=== PATIENT | female | born 1995 | race Caucasian/White ===

== ENCOUNTER 2018-06-16 09:40 | Emergency (ER) | payer MEDICAID, OTHER ==
--- NOTE | 2018-06-16 10:04 | ER Document Report ---
ED General - General Chief Complaint: Vaginal Bleeding Stated Complaint: VAGINAL BLEEDING Time Seen by Provider: 06/16/18 10:02 TRAVEL OUTSIDE OF THE [place] IN LAST 30 DAYS: No - HPI Notes: Patient is a 23-year-old female that presents to the emergency department for chief complaint of vaginal bleeding. Patient at 6 weeks 1 day gestation by ultrasound performed at the health department. She reports some lower abdominal cramping yesterday and vaginal bleeding that began today. She states it is bright red with small darker clots. She states it has been a minimal amount of blood and she would have not soaked through a pad. She currently denies any abdominal pain, fever, nausea, vomiting and dysuria. She is currently using vaporized tobacco and is weaning her way off as quickly as she can tolerate. She denies any abdominal trauma. Past Medical History: Negative Past Surgical History: [address] teeth removal Social History: Vaporized tobacco. Denies drugs and alcohol Family History: Reviewed and noncontributory for presenting illness Allergies: Reviewed, see documented allergy list. REVIEW OF SYSTEMS: CONSTITUTIONAL : No fever No chills No diaphoresis No recent illness EENT: No vision changes No congestion No sore throat CARDIOVASCULAR: No chest pain No palpitations RESPIRATORY: No shortness of breath No cough No difficulty breathing GASTROINTESTINAL: No abdominal pain No nausea No vomiting No diarrhea GENITOURINARY: Vaginal bleeding No dysuria No hematuria No difficulty urinating MUSCULOSKELETAL: No back pain No leg pain No arm pain SKIN: No rashes No lesions LYMPHATIC: No swollen, enlarged glands. NEUROLOGICAL: No lightheadedness No headache No weakness No paresthesias PSYCHIATRIC: No anxiety No depression PHYSICAL EXAMINATION: Vital signs reviewed, nursing noted reviewed. GENERAL: Well-appearing, well-nourished and in no acute distress. HEAD: Atraumatic, normocephalic. EYES: Eyes appear normal, extraocular movements intact, sclera anicteric, conjunctiva are normal. ENT: nares patent, oropharynx clear without exudates. Moist mucous membranes. NECK: Normal range of motion, supple without lymphadenopathy LUNGS: Breath sounds clear to auscultation bilaterally and equal. No wheezes rales or rhonchi. HEART: Regular rate and rhythm without murmurs ABDOMEN: Soft, nontender, normoactive bowel sounds. No rebound, guarding, or rigidity. No masses appreciated. EXTREMITIES: Nontender, good range of motion, no pitting or edema. NEUROLOGICAL: No focal neurological deficits. Moves all extremities spontaneously Motor and sensory grossly intact on exam. PSYCH: Normal mood, normal affect. SKIN: Warm, Dry, normal turgor, no rashes or lesions noted on exposed skin - Related Data Allergies/Adverse Reactions: No Known Allergies Allergy (Verified 06/16/18 09:45) Past Medical History - Social History Smoking Status: Current Every Day Smoker Chew tobacco use (# tins/day): No Frequency of alcohol use: None Drug Abuse: None Family History: Reviewed & Not Pertinent Patient has suicidal ideation: No Patient has homicidal ideation: No Renal/ Medical History: Denies: Hx Peritoneal Dialysis Physical Exam - Vital signs Vitals: Temp Pulse Resp BP Pulse Ox 98.1 F 92 15 122/70 100 06/16/18 09:43 06/16/18 09:43 06/16/18 09:43 06/16/18 09:43 06/16/18 09:43 Course - Re-evaluation Re-evalutation: 06/16/18 10:03 Vitals reviewed. Nursing notes reviewed. Patient is afebrile and nontoxic in appearance. Abdominal exam is soft and nontender. 06/16/18 11:38 Patient's ultrasound showed no cardiac activity however she is early in her gestation and the recommendation is for close repeat ultrasound in the next 5-7 days. Patient is Rh+ and not requiring RhoGam. Urinalysis negative for infection. She has a stable hemoglobin. She will be discharged home for further outpatient OB management. [facility] but also told she can follow with the health department. Laboratory 06/16/18 06/16/18 06/16/18 10:00 10:00 10:00 WBC 10.5 RBC 4.98 Hgb 15.3 Hct 44.5 MCV 89 MCH 30.8 MCHC 34.4 RDW 13.5 Plt Count 295 Seg Neutrophils % 62.0 Lymphocytes % 29.3 Monocytes % 4.8 Eosinophils % 3.5 Basophils % 0.4 Absolute Neutrophils 6.5 Absolute Lymphocytes 3.1 Absolute Monocytes 0.5 Absolute Eosinophils 0.4 Absolute Basophils 0.0 Beta HCG, Quant 1483.50 H Total Beta HCG POSITIVE Urine Color Urine Appearance Urine pH Ur Specific [place] Urine Protein Urine Glucose (UA) Urine Ketones Urine Blood Urine Nitrite Urine Bilirubin Urine Urobilinogen Ur Leukocyte Esterase Urine WBC (Auto) Urine RBC (Auto) Urine Bacteria (Auto) Squamous Epi Cells Auto Urine Mucus (Auto) Urine Ascorbic Acid Blood Type B POSITIVE Rhogam Indicated RHOGAM NOT INDICATED 06/16/18 10:35 WBC RBC Hgb Hct MCV MCH MCHC RDW Plt Count Seg Neutrophils % Lymphocytes % Monocytes % Eosinophils % Basophils % Absolute Neutrophils Absolute Lymphocytes Absolute Monocytes Absolute Eosinophils Absolute Basophils Beta HCG, Quant Total Beta HCG Urine Color YELLOW Urine Appearance SLIGHTLY-CLOUDY Urine pH 7.0 Ur Specific [place] 1.010 Urine Protein NEGATIVE Urine Glucose (UA) NEGATIVE Urine Ketones NEGATIVE Urine Blood LARGE H Urine Nitrite NEGATIVE Urine Bilirubin NEGATIVE Urine Urobilinogen NEGATIVE Ur Leukocyte Esterase NEGATIVE Urine WBC (Auto) 1 Urine RBC (Auto) 1 Urine Bacteria (Auto) TRACE Squamous Epi Cells Auto 6 Urine Mucus (Auto) RARE Urine Ascorbic Acid NEGATIVE Blood Type Rhogam Indicated - Vital Signs Vital signs: Temp Pulse Resp BP Pulse Ox 98.1 F 92 15 122/70 100 06/16/18 09:43 06/16/18 09:43 06/16/18 09:43 06/16/18 09:43 06/16/18 09:43 - Laboratory Result Diagrams: 06/16/18 10:00 Laboratory results interpreted by me: 06/16/18 06/16/18 10:00 10:35 Beta HCG, Quant 1483.50 H Urine Blood LARGE H - Diagnostic Test Radiology reviewed: Image reviewed, Reports reviewed Discharge - Discharge Clinical Impression: Threatened miscarriage Condition: Stable Disposition: HOME, SELF-CARE Instructions: Threatened Miscarriage ([facility]) Additional Instructions: Please return to the emergency department if you have any worsening, or concern of your symptoms. Please return to the emergency department if you develop chest pain, difficulty breathing, severe abdominal pain, or ongoing vomiting. Please follow-up with your primary care physician in 2-3 days and any other recommended physicians. If prescribed, take all medications as directed. If you have any questions or concerns do not hesitate to return the emergency department for evaluation. There was no heart activity seen on your ultrasound today. You are early in your gestation which may limit this exam. You need to have a repeat ultrasound performed in the next 5-7 days Referrals: [facility] [Provider Group] - 06/22/18
[2018-06-16 10:18] LABS: ABSOLUTE EOSINOPHILS # (AUTO) 0.4 10^3/uL (0.0-0.6); ABSOLUTE LYMPHOCYTES (AUTO) 3.1 10^3/uL (0.5-4.7); ABSOLUTE MONOCYTES (AUTO) 0.5 10^3/uL (0.1-1.4); ABSOLUTE NEUT (AUTO) 6.5 10^3/uL (1.7-8.2); BASOPHILS % (AUTO) 0.4 % (0-2); EOSINOPHILS % (AUTO) 3.5 % (0-6); HEMATOCRIT 44.5 % (36.0-47.0); HEMOGLOBIN 15.3 g/dL (12.0-15.5); LYMPHOCYTES % (AUTO) 29.3 % (13-45); MEAN CORPUSCULAR HEMOGLOBIN 30.8 pg (27.0-33.4); MEAN CORPUSCULAR HGB CONC 34.4 g/dL (32.0-36.0); MEAN CORPUSCULAR VOLUME 89 fl (80-97); MONOCYTES % (AUTO) 4.8 % (3-13); PLATELET COUNT 295 10^3/uL (150-450); RED BLOOD COUNT 4.98 10^6/uL (3.72-5.28); RED CELL DISTRIBUTION WIDTH 13.5 % (11.5-14.0); TOTAL CELLS COUNTED % (AUTO) 100 %; WHITE BLOOD COUNT 10.5 10^3/uL (4.0-10.5)
[2018-06-16 11:26] LABS: APPEARANCE,URINE SLIGHTLY-CLOUDY; BILIRUBIN,URINE NEGATIVE (NEGATIVE); COLOR,URINE YELLOW; GLUCOSE, URINE NEGATIVE (NEGATIVE); KETONES,URINE NEGATIVE (NEGATIVE); LEUKOCYTE ESTERASE,URINE NEGATIVE (NEGATIVE); NITRITE,URINE NEGATIVE (NEGATIVE); PROTEIN,URINE NEGATIVE (NEGATIVE); UROBILINOGEN,URINE NEGATIVE mg/dL (<2.0)
[2018-06-16 11:45] VITALS: BP 125/78
--- NOTE | 2018-06-16 12:14 | RADIOLOGY REPORT (SQ) ---
EXAM DESCRIPTION: U/S OB TRANSVAGINAL W/O DOP COMPLETED DATE/TIME: 06/16/2018 11:13 am REASON FOR STUDY: vaginal bleeding COMPARISON: None. TECHNIQUE: Transvaginal static and realtime grayscale images acquired of the pelvis. Additional ramirez cted spectral and color Doppler images recorded. All images stored on PACs. [email or web address] CLINICAL DATES: ARISTIDES: 02/08/2019. EGA: 6 weeks 1 day LIMITATIONS: None. FINDINGS: FETUS: Single Living intrauterine . ULTRASOUND EGA: 5 weeks 4 days ULTRASOUND ARISTIDES: 02/12/2019 EFW: Not applicable less than 20 weeks. CRL: 0.17 cm(the appearance is difficult to date due to the size). FHR: Not visualized.. SURVEY: No visualized anomalies. AMNIOTIC FLUID: Adequate amount. PLACENTA: Not yet developed due to early gestation. SUBCHORIONIC BLEED: Yes SIZE OF BLEED: A small 0.8 x 0.7 x 0.5 cm hypoechoic area adjacent to the gestational sac. UTERUS: No masses. No anomalies. CERVICAL LENGTH: 2.8 cm. Closed. RIGHT ADNEXA: The right ovary measures 3.7 x 2.5 x 2.4 cm. Normal ovary with normal vascular flow. No adnexal free fluid. No adnexal masses. LEFT ADNEXA: The left ovary measures 2.8 x 2.1 x 2.3 cm .Normal ovary with normal vascular flow. No adnexal free fluid. No adnexal masses. FREE FLUID: None. OTHER: No other significant finding. IMPRESSION: 1. Intrauterine gestational sac and pole suggested within the sac. No hear t activity identified. Clinical correlation suggested and short-term follow-up examination in 5-7 da ys. 2. Small subchorionic bleed. 3. EGA: 5 weeks 4 days Trimester of : First - 0 to 13 weeks. COMMENT: 1. The results of this examination were discussed with the emergency room provider on 06/16 at 11:32 hours. TECHNICAL DOCUMENTATION: JOB ID: [id number] [employer]- All Rights Reserved rev Reading location - IP/workstation name: [email or web address]
[2018-06-16 12:34] LABS: CHLAM PCR NOT DETECTED (NOT DETECT); GON PCR NOT DETECTED (NOT DETECT)
== END 2018-06-16 11:55 | disposition home or self-care (01) ==
LOC: ER 09:40
DX: O20.0 Threatened abortion (principal); O99.331 Smoking (tobacco) complicating pregnancy, first trimester; F17.290 Nicotine dependence, other tobacco product, uncomplicated; Z3A.01 Less than 8 weeks gestation of pregnancy
CPT/HCPCS: 36415; 76817; 81001; 84702; 85025; 86900; 86901; 87491; 87591; 99284

== ENCOUNTER 2020-04-23 14:04 | Emergency (ER) | payer MEDICAID, OTHER ==
[2020-04-23] MEDS ORDERED: METOCLOPRAMIDE HCL 10 MG TABLET PO ONE (14:34)
--- NOTE | 2020-04-23 14:36 | ER Document Report ---
ED Medical Screen (RME) - General Chief Complaint: Pelvic Pain Stated Complaint: ABDOMINAL PAIN,VOMITING Time Seen by Provider: 04/23/20 14:31 Notes: Patient is a 25-year-old female presents emergency department with lower abdominal pain and vomiting after intercourse. She states that she was having sex with her boyfriend and ended up having a sharp pain in her left pelvic area. Exam: Tender left lower abdomen. I have greeted and performed a rapid initial assessment of this patient. A comprehensive ED assessment and evaluation of the patient, analysis of test results and completion of medical decision making process will be conducted by an additional ED providers. TRAVEL OUTSIDE OF THE [place] IN LAST 30 DAYS: No - Related Data Allergies/Adverse Reactions: No Known Allergies Allergy (Verified 04/23/20 14:31) Past Medical History - Social History Drug Abuse: Marijuana Renal/ Medical History: Denies: Hx Peritoneal Dialysis Physical Exam - Vital signs Vitals: Temp Pulse Resp BP Pulse Ox 98.4 F 92 20 115/92 H 99 04/23/20 14:16 04/23/20 14:16 04/23/20 14:16 04/23/20 14:16 04/23/20 14:16 Course - Vital Signs Vital signs: Temp Pulse Resp BP Pulse Ox 98.4 F 92 20 115/92 H 99 04/23/20 14:16 04/23/20 14:16 04/23/20 14:16 04/23/20 14:16 04/23/20 14:16
[2020-04-23 15:24] LABS: ABSOLUTE EOSINOPHILS # (AUTO) 0.1 10^3/uL (0.0-0.6); ABSOLUTE MONOCYTES (AUTO) 0.4 10^3/uL (0.1-1.4); ABSOLUTE NEUT (AUTO) 10.7 10^3/uL (1.7-8.2); BASOPHILS % (AUTO) 0.2 % (0-2); EOSINOPHILS % (AUTO) 0.4 % (0-6); HEMATOCRIT 40.5 % (36.0-47.0); HEMOGLOBIN 13.4 g/dL (12.0-15.5); LYMPHOCYTES % (AUTO) 14.9 % (13-45); MEAN CORPUSCULAR HEMOGLOBIN 28.8 pg (27.0-33.4); MEAN CORPUSCULAR HGB CONC 33.1 g/dL (32.0-36.0); MEAN CORPUSCULAR VOLUME 87 fl (80-97); MONOCYTES % (AUTO) 3.4 % (3-13); PLATELET COUNT 305 10^3/uL (150-450); RED BLOOD COUNT 4.66 10^6/uL (3.72-5.28); SEGMENTED NEUTROPHILS % (AUTO) 81.1 % (42-78); TOTAL CELLS COUNTED % (AUTO) 100 %; WHITE BLOOD COUNT 13.1 10^3/uL (4.0-10.5)
[2020-04-23 15:34] LABS: APPEARANCE,URINE CLEAR; BILIRUBIN,URINE NEGATIVE (NEGATIVE); COLOR,URINE YELLOW; GLUCOSE, URINE NEGATIVE (NEGATIVE); KETONES,URINE TRACE mg/dL (NEGATIVE); LEUKOCYTE ESTERASE,URINE NEGATIVE (NEGATIVE); NITRITE,URINE NEGATIVE (NEGATIVE); PROTEIN,URINE NEGATIVE (NEGATIVE); URINE SPECIFIC GRAVITY 1.018; UROBILINOGEN,URINE NEGATIVE mg/dL (<2.0)
[2020-04-23 15:37] LABS: ALBUMIN 4.6 g/dL (3.5-5.0); ALKALINE PHOSPHATASE 88 U/L (38-126); ANION GAP 7 (5-19); ASPARTATE AMINO TRANSFERASE 21 U/L (14-36); BILIRUBIN,DIRECT 0.1 mg/dL (0.0-0.4); BILIRUBIN,TOTAL 0.9 mg/dL (0.2-1.3); BLOOD UREA NITROGEN 8 mg/dL (7-20); CALCIUM 10.2 mg/dL (8.4-10.2); CARBON DIOXIDE 27 mmol/L (22-30); CHLORIDE 103 mmol/L (98-107); GLUCOSE 94 mg/dL (75-110); POTASSIUM 4.3 mmol/L (3.6-5.0); TOTAL PROTEIN 8.1 g/dL (6.3-8.2)
--- NOTE | 2020-04-23 16:01 | ER Document Report ---
ED GI/ - General Chief Complaint: Pelvic Pain Stated Complaint: ABDOMINAL PAIN,VOMITING Time Seen by Provider: 04/23/20 14:31 Notes: CHIEF COMPLAINT: Left pelvic pain after intercourse today, vomiting HPI: 25-year-old female presenting for onset of left pelvic pain after intercourse today with multiple episodes of vomiting. No fever no dysuria states not had a negative test 2 days ago at home. No history of ovarian cysts. ROS: See HPI - all other systems were reviewed and are otherwise negative Constitutional: no fever or recent illness GI: + vomiting, no diarrhea : no dysuria, no vaginal discharge, positive pelvic pain Integumentary: no rash Allergy: no hives MEDICATIONS: I agree with the patient medications as charted by the RN. ALLERGIES: I agree with the allergies as charted by the RN. PAST MEDICAL HISTORY/PAST SURGICAL HISTORY: Reviewed and agree as charted by RN. SOCIAL HISTORY: Reviewed and agree as charted by RN. FAMILY HISTORY: No significant familial comorbid conditions directly related to patient complaint EXAM: Reviewed vital signs as charted by RN. CONSTITUTIONAL: Alert and oriented and responds appropriately to questions. 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 External genitalia normal. No skin lesions noted. Pelvic Exam: No active bleeding. No purulent discharge. Cervix appears normal. No CMT. No lesions or masses. Uterus normal size and non tender. Right/Left adnexa normal size and mildly tender in the left adnexa on bimanual BACK: The back appears normal and is non-tender to palpation, there is no CVA tenderness EXT: Normal ROM in all joints; non-tender to palpation; no cyanosis, no e ffusions, no edema SKIN: Normal color for age and race; warm; dry; good turgor; no acute lesions noted NEURO: Moves all extremities equally; Motor and sensory function intact PSYCH: The patient's mood and manner are appropriate. Grooming and personal hygiene are appropriate. MDM: 25-year-old female with left pelvic pain after intercourse today. Will obtain ultrasound to evaluate for ovarian cyst or ovarian torsion. TRAVEL OUTSIDE OF THE [place] IN LAST 30 DAYS: No - Related Data Allergies/Adverse Reactions: No Known Allergies Allergy (Verified 04/23/20 14:31) Past Medical History - Social History Smoking Status: Current Every Day Smoker Drug Abuse: Marijuana Family History: Reviewed & Not Pertinent Renal/ Medical History: Denies: Hx Peritoneal Dialysis Musculoskeletal Medical History: Reports Hx Arthritis Psychiatric Medical History: Reports: Hx Depression Physical Exam - Vital signs Vitals: Temp Pulse Resp BP Pulse Ox 98.4 F 92 20 115/92 H 99 04/23/20 14:16 04/23/20 14:16 04/23/20 14:16 04/23/20 14:16 04/23/20 14:16 Course - Re-evaluation Re-evalutation: 04/23/20 18:13 Ultrasound shows bilateral ovarian cyst likely hemorrhagic. Also with vaginitis. Will treat with Flagyl, pain medication, [employer] follow-up - Vital Signs Vital signs: Temp Pulse Resp BP Pulse Ox 98.4 F 92 20 115/92 H 99 04/23/20 14:16 04/23/20 14:16 04/23/20 14:16 04/23/20 14:16 04/23/20 14:16 - Laboratory Results Result Diagrams: 04/23/20 15:00 04/23/20 15:00 Laboratory Results Interpreted: 04/23/20 04/23/20 15:00 15:00 WBC 13.1 H Absolute Neuts (auto) 10.7 H Seg Neutrophils % 81.1 H Urine Ketones TRACE H Critical Laboratory Results Reviewed: No Critical Results - Radiology Results Critical Radiology Results Reviewed: No Critical Results Discharge - Discharge Clinical Impression: Bacterial vaginitis, Pelvic pain in female Ovarian cyst Qualifiers: Laterality: bilateral Qualified Code(s): N83.201 - Unspecified ovarian cyst, right side; N83.202 - Unspecified ovarian cyst, left side Condition: Stable Disposition: HOME, SELF-CARE Additional Instructions: It was noted on your imaging study today that you have ovarian cysts on both ovaries. Follow-up closely with [employer] for further evaluation and management. Pain medications as prescribed. Do not drive if taking narcotics for pain. It was also noted that you have bacterial vaginitis which is a bacterial vaginal infection. Take the antibiotics to treat this. Prescriptions: Metronidazole [Flagyl 500 mg Tablet] 500 mg PO BID #14 tablet Hydrocodone/Acetaminophen [[place] 5-325 mg Tablet] 1 tab PO Q4 PRN #10 tablet PRN Reason: Diclofenac Sodium [Voltaren 50 Mg Tablet.] 50 mg PO BID #20 tablet. Referrals: ABDULLAHI SANON MD [ACTIVE STAFF] - Follow up as needed
[2020-04-23 16:44] LABS: CHLAM PCR NOT DETECTED (NOT DETECT)
[2020-04-23 16:53] LABS: T.VAGINALIS (WET MOUNT) NO TRICHOMONAS SEEN; WBCS (WET MOUNT) RARE WBCS SEEN; YEAST (WET MOUNT) NO YEAST SEEN
[2020-04-23 16:54] LABS: EPITHELIALS (WET MOUNT) 3+ EPITHELIALS SEEN
--- NOTE | 2020-04-23 17:39 | RADIOLOGY REPORT (SQ) ---
EXAM DESCRIPTION: U/S NON OB PEL W/DOPPLER IMAGES COMPLETED DATE/TIME: 04/23/2020 5:28 pm REASON FOR STUDY: left sided pelvic pain with intercourse COMPARISON: None. TECHNIQUE: Dynamic and static grayscale images acquired of the pelvis via transabdominal approach an d recorded on PACS. Additional selected color Doppler and spectral images recorded. LIMITATIONS: None. FINDINGS: UTERUS: Contour normal. No mass. ENDOMETRIAL STRIPE: No focal or generalized thickening. No masses. CERVIX: No nabothian cysts. RIGHT OVARY AND DOPPLER: Normal size. 3.4 cm cyst containing internal debris. Normal arterial vascul ar flow without evidence for torsion. LEFT OVARY AND DOPPLER: Normal size. 3.5 cm cyst containing internal debris. Normal arterial vascula r flow without evidence for torsion. FREE FLUID: None noted. OTHER: No other significant finding. MEASUREMENTS: UTERUS: 3.0 x 4.5 x 7.5 cm. ENDOMETRIAL STRIPE: 11.3 mm. RIGHT OVARY: 3.4 x 4.5 x 5.6 cm. LEFT OVARY: 2.2 x 2.8 x 4.4 cm. IMPRESSION: BILATERAL OVARIAN CYSTS CONTAINING DEBRIS, POSSIBLY HEMORRHAGIC. CONSIDER FOLLOW-UP ULT RASOUND 6 -12 WEEKS. COMMENT: Followup of asymptomatic indeterminate ovarian cysts detected by ultrasound in PREMENOPAUS AL patients Cyst with findings suggestive of, but not classic for, hemorrhagic cyst, endometrioma or dermoid: *6-12 week followup US; if not a resolving hemorrhagic cyst, continued US or MRI followup; if endomet rioma or dermoid still not confirmed, consider surgical consultation Single thin septation or focal wall calcification: *Same as for benign cyst, based on size Multiple septations: *Consider surgical consultation Nodule in a cyst: *No blood flow in nodule: MRI or surgical consultation *Blood flow in nodule: surgical consultation Note: If cyst is clinically symptomatic or otherwise concerning, other followup may be warranted. Based on recommendations of the Society for Radiologists in Ultrasound Consensus Conference Statement 2010 on management of asymptomatic ovarian and other adnexal cysts imaged at ultrasound. TECHNICAL DOCUMENTATION: JOB ID: [id number] 2010 [employer]- All Rights Reserved Rev Reading location - IP/workstation name: [email or web address]
[2020-04-23 18:52] VITALS: BP 118/90
== END 2020-04-23 18:35 | disposition home or self-care (01) ==
LOC: ER 14:04
DX: N76.0 Acute vaginitis (principal); B96.89 Other specified bacterial agents as the cause of diseases classified elsewhere; N83.202 Unspecified ovarian cyst, left side; N83.201 Unspecified ovarian cyst, right side; F17.200 Nicotine dependence, unspecified, uncomplicated; F12.10 Cannabis abuse, uncomplicated
CPT/HCPCS: 36415; 76856; 80053; 81001; 84703; 85025; 87210; 87491; 87591; 93976; 99284